=== PATIENT | male | born 1950 | race Caucasian/White ===

== ENCOUNTER 2017-12-02 18:38 | Emergency (ER) | payer MEDICARE, SELFPAY ==
[2017-12-02 18:40] VITALS: BP 167/76; PULSE 45; RESP 14; TEMP 36.7; O2SAT 98; BMI 23.3
--- NOTE | 2017-12-02 20:09 | ED.DEP ---
ED Disposition - Plan for ED Patient: Chief Complaint: Foreign Body Instructions: Foreign Object in the Ear or Nose Referrals: Fawad Ramos MD [Primary Care Provider] -
--- NOTE | 2017-12-02 20:13 | ED.DCSUM_ITS ---
- ER Visit Summary Date of Service: 12/02/17 Chief Complaint: Possible foreign body left ear History of Present Illness: The patient is a 67 M presenting with concern for possible foreign body left ear. He states he noticed his hearing aid had the tip missing and is unsure if it got stuck in his left ear. This has happened in the past. He has no ear pain or change in hearing. No other complaints. Physical Examination: Vitals are stable. Patient is afebrile. Alert no acute distress. HEENT exam Left TM normal. No visualized foreign body Neck is supple. Lungs are clear and equal bilaterally. Heart is regular rate and rhythm. Extremities are unremarkable. Skin is warm and dry. Remainder of exam is unremarkable. Emergency Department Course and Treatment: There is no foreign body visualized in the left ear. He is reassured. He will follow-up with his primary care physician. Advised return ED for worsening complaints. Disposition: Discharge home Impression: Hearing aid malfunction This note was generated with [employer] dictation software. It may contain incorrect words, spelling, and punctuation that were not noted in review of the chart prior to signing ED Disposition - Plan for ED Patient: Chief Complaint: Foreign Body Instructions: Foreign Object in the Ear or Nose Referrals: Fawad Ramos MD [Primary Care Provider] -
[2017-12-02 20:21] VITALS: PULSE 55; RESP 16; O2SAT 99
== END 2017-12-02 20:22 | disposition home or self-care (01) ==
PROVIDERS: Emergency Provider Emergency Medicine; Family Provider Family Medicine; PCP Family Medicine
DX: T85.698A Other mechanical complication of other specified internal prosthetic devices, implants and grafts, initial encounter (principal)
CPT/HCPCS: 99282

== ENCOUNTER → 2022-08-16 | Outpatient (CLI) | payer MEDICARE, SELFPAY ==
--- NOTE | 2022-08-16 | FLU_PTH ---
PATIENT: LEONARDO HOOPER LOC: [facility] U#:[id number] AGE/SX: 71/M ROOM: RE08/16/[address]: Dr. Helen Abel MD : 1950 BED: DIS: 08/16/2022 SPEC #: [id number] RECD: 08/16/22 16:12 STATUS: JAN REFaustino #: [id number] RJ: 08/16/22 00:[address]: Helen Abel DEPT: CYTOLOGY RECD BY: Ashish Mendez ENTERED: 08/17/22 09:31 SP TYPE: Fluid OTHR DR: Dr. Fawad Ramos MD Tissues: A - Thyroid gland, NOS B - Thyroid gland, NOS Procedures: Special Stain Group II Surgery Specimen Level IV Cytospin Fluid HEADER OPERATION: Fine needle aspiration right thyroid PRE-OP DIAGNOSIS: Abnormal ultrasound TISSUE SUBMITTED: A ? FNA right thyroid fluid, B - FNA right thyroid x8 slides DIAGNOSIS CYTOLOGY A. Fine needle aspiration, right thyroid nodule (cytospin and cell block): Benign, consistent with benign follicular/colloid nodule ([place] Category II). See comment. B. Fine needle aspiration, right thyroid nodule (smears): Benign, consistent with benign follicular nodule ([place] Category II). See comment. AM:akua 08/18/2022 COMMENT A & B. The [place] System for thyroid diagnostic categorization was used in the evaluation of this case. The specimen is adequate for evaluation. CYTOLOGY STUDY Slides are reviewed. CYTOLOGY GROSS A - Received is 30 ml of cloudy brown fluid labeled with the patient's name and and designated per the requisition as right thyroid. Submitted for cytology preparation including cell block. B - Received are eight smears labeled with the patient's name and designated per the requisition as right thyroid. Submitted for staining. / akua 08/17/2022 TC:5 CPT: 27290 x2, 90372
== END | disposition home or self-care (01) ==
PROVIDERS: PCP Family Medicine; Visit Provider Surgery
DX: R93.89 Abnormal findings on diagnostic imaging of other specified body structures (principal)
CPT/HCPCS: 88108; 88305; 88313

== ENCOUNTER 2024-07-29 22:23 | Emergency (ER) | payer MEDICARE, SELFPAY ==
[2024-07-29 22:24] VITALS: BP 139/64; PULSE 55; RESP 19; TEMP 36.3; O2SAT 98; BMI 23.8
[2024-07-30 00:21] VITALS: BP 145/68; PULSE 51; O2SAT 97
[2024-07-30] MEDS: Ondansetron ODT 4 MG Tablet PO (01:16)
[2024-07-30] MEDS: Gabapentin 300 MG Capsule PO (01:17)
[2024-07-30] MEDS: Morphine 4 MG/ML Syringe IM (01:17)
--- NOTE | 2024-07-30 01:38 | RAD_ITS ---
EXAM: DX ribs unilateral minimum three views with PA chest CLINICAL HISTORY: Pain COMPARISON: None available TECHNIQUE: PA chest and three views of the left ribs, 4 total images FINDINGS: The lungs appear clear. No pneumothorax or pleural effusion. Sequela of previous granulomatous disease. Cardiac and mediastinal contours appear within limits. No fracture identified. RAD/Ribs Uni Min 3V w/PA Chest IMPRESSION: No evidence of acute traumatic injury. Reading Location: [id number]
[2024-07-30 02:00] VITALS: BP 119/63; PULSE 54; RESP 16; O2SAT 98
--- NOTE | 2024-07-30 02:30 | EDS_ITS ---
HPI History of Present Illness Chief Complaint: Back Informant: patient and spouse/S.O. Narrative Narrative: Patient is a 73-year-old male with past medical history of hypertension. He states 4 to 5 hours ago he was standing on the walkway in the bleachers when he lost his balance and fell striking his left back/ribs. He denies striking his head or any loss of consciousness. He denies any history of bleeding disorder or blood thinner use. He states he is urinated since the fall and has not noted any dark or bloody urine. He does report pain along the left posterior back/ribs that worsens with motion and therefore has concern for potential fracture and comes in for evaluation [facility] Home Medications ?Medication ?Instructions ?Recorded ?Last Taken ?Type albuterol sulfate 90 mcg/actuation inhalation 07/30/24 Unknown History aerosol inhaler lisinopril 5 mg tablet 5 mg PO DAILY 07/30/24 Unkno wn History Allergy/AdvReac Type Severity Reaction Status Date / Time bee venom protein (honey bee) Allergy Anaphylaxis Verified 07/30/24 02:06 Family History no significant family his Surgical History no surgical history Social History Smoking Status: Never smoker ROS ROS ED Constitutional Constitutional ED: Denies chills or fever(s) Eyes Eyes: Denies blurry vision or change in vision ENT ENT ED: Denies sore throat Cardiovascular Cardiovascular: Reports other Details: Negative syncope ; Denies chest pain, palpitations or racing heartbeat Respiratory/Chest Respiratory/Chest: Denies cough or dyspnea Gastrointestinal Gastrointestinal: Denies abdominal pain, diarrhea, nausea or vomiting Genitourinary Genitourinary ED: Denies dysuria or hematuria Musculoskeletal Musculoskeletal: Reports back pain and other Details: Positive left rib pain ; Denies neck pain Integumentary Denies Abrasions or rash Neurologic Neurologic: Denies headache(s) or paresthesias Hematologic/Lymphatic Hematologic/Lymphatic: Denies easy bleeding or easy bruising EXAM Physical Exam Const Vital Signs: 07/29/24 22:24 07/30/24 00:21 07/30/24 02:00 Temperature 97.3 F L Temperature Source Temporal Pulse Rate 55 L 51 L 54 L Respiratory Rate 19 H 16 Blood Pressure 139/64 H 145/68 H 119/63 Blood Pressure Mean 89 93 81 Pulse Ox 98 97 98 Oxygen Delivery Method Room Air Room Air Room Air 07/30/24 02:43 Temperature 98.1 F Temperature Source Pulse Rate 59 L Respiratory Rate 16 Blood Pressure 125/64 H Blood Pressure Mean 84 Pulse Ox 97 Oxygen Delivery Method Positive well nourished and well developed General Appearance ED: well developed; Negative for pallor HEENT HEENT Narrative: Normocephalic atraumatic Eyes PERRL and EOMs intact bilaterally Neck supple Neck Narrative: No bony deformity or step-off of the cervical spine no midline tenderness to palpation Chest Wall Chest Narrative: There is pain with palpation along the left posterior rib cage rib regions 8-12 No bony deformity or subcutaneous emphysema noted Resp normal respiratory effort and clear to auscultation bilaterally Cardio regular rate and regular rhythm GI normal to inspection, nondistended, normoactive bowel sounds, non-tender, non- distended and no masses Auscultation: normoactive bowel sounds Palpation: soft Back/Spine Back/Spine Narrative: No bony deformity or step-off of the thoracic or lumbar spine midline tenderness to palpation Extremity normal to inspection Extremity Narrative: Pelvis is stable there is no shortening or external rotation of either lower extremity Neuro oriented x3, CN's II-XII intact bilaterally and no sensory deficits noted Sensorium / Orientation: alert Motor Exam: strength 5/5 throughout Psych mental status grossly normal Skin no rashes or lesions noted and no wounds Skin Narrative: Mild soft tissue swelling of the left lateral back consistent with trauma without ecchymosis or abrasions General Skin Exam: Negative for jaundice or pallor MDM MDM MDM Narrative Medical decision making narrative: Patient arrived to the ER with stable vitals. He reported a mechanical fall and therefore I felt no need for cardiac or syncope workup. He does not take blood thinners nor did he strike his head so I had low concern for a subarachnoid or subdural hemorrhage. Also he did not have any midline neck thoracic or lumbar pain and my concern for acute compression fracture is low and there is no need for CT scan or x-ray of the spine. With pain over the left posterior ribs there is concern for rib contusion versus fracture versus pneumothorax. Therefore left rib series was obtained. This revealed no pneumothorax or acute fracture. On reevaluation he reports improvement of his symptoms after the medication provided. Vitals remained stable he is not in respiratory distress or requiring supplemental oxygen. Therefore there is no need for further intervention and as he is not reporting any hematuria my concern for a kidney laceration is low and do not feel the need for a CT scan of the abdomen and pelvis. Patient was advised on symptomatic care regarding his rib contusion and is otherwise safe for discharge History & Record Review Discussion w/independent historian: Patient Radiography Diagnostic Testing: Clinical Impression(s) from Imaging Studies Ribs w/Chest X-Ray 07/30/24 01:38 IMPRESSION: No evidence of acute traumatic injury. Reading Location: [facility] Left rib series with 1 view chest as interpreted by the emergency medicine physician reveals no acute rib fracture or pneumothorax or pleural effusion Discharge Plan Triage Chief Complaint: Back ED Provider: Fransico Call Dx/Rx/DC Orders Clinical Impression: Contusion of rib on left side, Accidental fall, Hypertension Instructions: ED Bruise, Rib Prescriptions: No Action lisinopril 5 mg tablet 5 mg PO DAILY albuterol sulfate 90 mcg/actuation HFA aerosol inhaler inhalation Primary Care Provider: Fawad Ramos Referrals: Fawad Ramos MD [Primary Care Provider] - Print Language: German Disposition Disposition: Home, Self Care Discharge Date/Time: 07/30/24 02:44
[2024-07-30 02:43] VITALS: BP 125/64; PULSE 59; RESP 16; TEMP 36.7; O2SAT 97
== END 2024-07-30 02:44 | disposition home or self-care (01) ==
PROVIDERS: Emergency Provider Emergency Medicine; PCP Family Medicine; Visit Provider Emergency Medicine
DX: S20.212A Contusion of left front wall of thorax, initial encounter (principal); I10 Essential (primary) hypertension; Z79.899 Other long term (current) drug therapy; W19.XXXA Unspecified fall, initial encounter
CPT/HCPCS: 71101; 96372; 99282

== ENCOUNTER 2024-08-02 21:52 | Emergency (ER) | payer MEDICARE, SELFPAY ==
[2024-08-02 21:53] VITALS: BP 103/66; PULSE 55; RESP 16; TEMP 36; O2SAT 100; BMI 23.6
--- NOTE | 2024-08-02 22:38 | EDS_ITS ---
HPI History of Present Illness Chief Complaint: Constipation Informant: patient and spouse/S.O. Narrative Narrative: Patient is a 73-year-old male with past medical history of hypertension. He was seen recently secondary to mechanical fall and rib pain. At that time x-rays revealed no signs of rib fracture or pneumothorax. He states that he had leftover oxycodone which he has taken twice since his injury. He states that he has not had a normal bowel movement for multiple days. He states that he feels like he could have a BM but that there is no movement when he tries. He states that he is not having nausea or vomiting but has had decreased flatus. He denies any previous history of small bowel obstruction. He reports that he tried at home enema without any symptom improvement as well as [id number] medications such as Dulcolax and fiber supplement. As his constipation is not resolving he presents for evaluation. [facility] Home Medications ?Medication ?Instructions ?Recorded ?Last Taken ?Type albuterol sulfate 90 mcg/actuation 2 inh inhalation [place] N 07/30/24 Unknown History aerosol inhaler lisinopril 5 mg tablet 5 mg PO DAILY 07/30/24 Unkno wn History oxycodone 5 mg tablet 5 mg PO Q8H 08/02/24 Unknown History Allergy/AdvReac Type Severity Reaction Status Date / Time bee venom protein (honey bee) Allergy Anaphylaxis Verified 08/02/24 21:53 Social History Smoking Status: Never smoker ROS ROS ED Constitutional Constitutional ED: Denies chills or fever(s) ENT ENT ED: Denies sore throat Cardiovascular Cardiovascular: Denies chest pain Respiratory/Chest Respiratory/Chest: Denies cough or dyspnea Gastrointestinal Gastrointestinal: Reports abdominal pain and constipation; Denies diarrhea, nausea or vomiting Genitourinary Genitourinary ED: Denies dysuria or hematuria Musculoskeletal Musculoskeletal: Denies back pain Integumentary Denies rash Neurologic Neurologic: Denies headache(s) Hematologic/Lymphatic Hematologic/Lymphatic: Denies easy bleeding or easy bruising EXAM Physical Exam Const Vital Signs: 08/02/24 21:53 08/02/24 23:46 Temperature 96.8 F L 98.0 F Temperature Source Temporal Pulse Rate 55 L 53 L Respiratory Rate 16 18 Blood Pressure 103/66 181/77 H Blood Pressure Mean 78 111 Pulse Ox 100 95 Oxygen Delivery Method Room Air Positive well nourished and well developed General Appearance ED: well developed; Negative for pallor HEENT HEENT Narrative: Normocephalic atraumatic Eyes PERRL and EOMs intact bilaterally General Eye ED: Negative for scleral icterus Neck supple Resp normal respiratory effort and clear to auscultation bilaterally Cardio regular rhythm Rate: bradycardia and other Other Details: Bradycardic rate with regular rhythm Radial and carotid pulses are equal and symmetric GI non-tender, non-distended and no masses GI Narrative: Abdomen is soft nontender and nondistended with hypoactive bowel sounds No voluntary guarding or rigidity or pulsatile mass Auscultation: hypoactive bowel sounds Palpation: soft Extremity normal to inspection Neuro oriented x3, CN's II-XII intact bilaterally and no sensory deficits noted Sensorium / Orientation: alert Motor Exam: strength 5/5 throughout Psych mental status grossly normal Skin no rashes or lesions noted General Skin Exam: Negative for jaundice or pallor MDM MDM MDM Narrative Medical decision making narrative: Patient presented to the ER with stable vitals. He reported multiple days without a bowel movement but sensation of stool within the rectal vault. Differential diagnosis is for constipation/fecal impaction versus diverticulitis versus small bowel obstruction. I discussed with patient that his history and exam is most consistent with fecal impaction but as he has had previous abdominal surgeries there is potential for a SBO. We discussed a acute abdominal series versus CT scan and blood work. Patient states that he has low concern for an infectious process or obstruction and believes he is just backed up. Therefore he requested an enema. After receiving a soapsuds enema he was able to have a significant bowel movement and reported feeling much better. Therefore at this time as patient was able to have a bowel movement is feeling better and his history and exam do not indicate potential infectious process I do not feel there is need for further evaluation and is otherwise safe for discharge Discharge Plan Triage Chief Complaint: Constipation ED Provider: Fransico Call Dx/Rx/DC Orders Clinical Impression: Constipation, Hypertension Instructions: Treating Constipation, ED Constipation (Adult) Prescriptions: No Action lisinopril 5 mg tablet 5 mg PO DAILY albuterol sulfate 90 mcg/actuation HFA aerosol inhaler 2 inh inhalation PRN oxycodone 5 mg tablet 5 mg PO Q8H Primary Care Provider: Fawad Ramos Referrals: Fawad Ramos MD [Primary Care Provider] - Activity Restrictions/Additional Instructions: Please return to the ER should you have any further concerns or worsening of symptoms Print Language: Danish Disposition Disposition: Home, Self Care Discharge Date/Time: 08/02/24 23:47
[2024-08-02 23:46] VITALS: BP 181/77; PULSE 53; RESP 18; TEMP 36.7; O2SAT 95
== END 2024-08-02 23:47 | disposition home or self-care (01) ==
PROVIDERS: Emergency Provider Emergency Medicine; PCP Family Medicine; Visit Provider Emergency Medicine
DX: K59.00 Constipation, unspecified (principal); I10 Essential (primary) hypertension; Z79.899 Other long term (current) drug therapy; Z79.51 Long term (current) use of inhaled steroids
CPT/HCPCS: 99284